=== PATIENT | female | born 1970 | race Caucasian/White ===

== ENCOUNTER → 2017-05-23 | Day surgery (SDC) | payer MEDICARE ==
[~2017-05-23] VITALS: Ht 149.9 cm; Wt 46.3 kg
[~2017-05-23] MED LIST: NAPROSYN500 MG PO; NORCO 5-325 TA1 EACH PO
[2017-05-23 07:18] LABS: HEMOGLOBIN 13.8 gm/dl (12.3-15.3); RED BLOOD COUNT 4.28 M/UL (4.00-5.10); WHITE BLOOD COUNT 8.8 K/UL (4.5-11.0)
== END | disposition home or self-care (01) ==
LOC: OR 06:28
PROVIDERS: Obstetrics & Gynecology
PROC: 0U5B8ZZ Destruction of Endometrium, Via Natural or Artificial Opening Endoscopic (ICD-10-PCS; principal; 2017-05-23 08:00)
DX: N92.0 Excessive and frequent menstruation with regular cycle (principal); J44.9 Chronic obstructive pulmonary disease, unspecified; F17.210 Nicotine dependence, cigarettes, uncomplicated; Z82.49 Family history of ischemic heart disease and other diseases of the circulatory system; Z79.899 Other long term (current) drug therapy
CPT/HCPCS: 36415; 81001; 85025; J1885; J2250; J2795; J7030; J7120